=== PATIENT | female | born 1975 | race Caucasian/White ===

== ENCOUNTER 2022-10-19 11:56 | Inpatient (IN) | payer OTHER ==
[2022-10-19 12:10] VITALS: BMI 23.3
[2022-10-19] MEDS ORDERED: POLYETHYLENE GLYCOL (HEALTHYLAX) 3350 17 GM PACKET PO PRN (12:37)
[2022-10-19] MEDS ORDERED: MAGNESIUM HYDROX 2400MG/30ML ORAL SUSPENSION 30 ML CUP PO PRN (12:37)
[2022-10-19] MEDS ORDERED: guaiFENesin 600 MG TABLET.ER (FP) PO PRN (12:37)
[2022-10-19] MEDS ORDERED: LOPERAMIDE HCL 2 MG CAPSULE PO PRN (12:37)
[2022-10-19] MEDS ORDERED: NALOXONE HCL 0.4 MG/ML VIAL IM PRN (12:37)
[2022-10-19] MEDS ORDERED: IBUPROFEN 600 MG TABLET (FP) PO PRN (12:37)
[2022-10-19] MEDS ORDERED: MAG HYDROX/AL HYDROX/SIMETH 30 ML UNIT-DOSE CUP PO PRN (12:37)
[2022-10-19] MEDS ORDERED: ONDANSETRON *ODT* 4 MG TABLET SL PRN (12:37)
[2022-10-19] MEDS ORDERED: BENZOCAINE/MENTHOL (CHLORASEPTIC ) LOZENGE MM PRN (12:37)
[2022-10-19] MEDS ORDERED: MELATONIN 5 MG TABLETS PO PRN (12:37)
[2022-10-19] MEDS ORDERED: BISMUTH SUBSALICYLATE 524 MG/30 ML PO PRN (12:37)
[2022-10-19] MEDS ORDERED: BENZONATATE 200 MG CAPSULE PO PRN (12:37)
[2022-10-19] MEDS ORDERED: P-EPHED 60MG/TRIPROLIDI 2.5MG TABLET PO PRN (12:37)
[2022-10-19] MEDS ORDERED: NICOTINE POLACRILEX 2 MG GUM BUC PRN (12:37)
[2022-10-19] MEDS ORDERED: hydrOXYzine PAMOATE 25 MG CAPSULE (FP) PO PRN (12:37)
[2022-10-19] MEDS ORDERED: NALOXONE HCL (KLOXXADO) 8 MG SPRAY NS PRN (12:37)
[2022-10-19] MEDS: NICOTINE 14 MG/24 HOURS TOPICAL PATCH TD SCH (14:18)
[2022-10-19] MEDS ORDERED: methaDONE HCL 10 MG TABLET (FOR DETOX USE ONLY) PO ONE (15:01)
[2022-10-19] MEDS: SUVOREXANT 10 MG TABLET PO PRN (22:29)
[2022-10-19] MEDS: THIAMINE HCL 100 MG TABLET (FP) PO SCH (22:30)
[2022-10-19] MEDS: SULFAMETHOXAZOLE/TRIMETHOPRIM 800MG/160MG D.S. TABLET PO SCH (23:42)
[2022-10-19] MEDS: OXcarbazepine 300 MG TABLET (UD) PO SCH (23:47)
[2022-10-20] MEDS: METHOCARBAMOL 500 MG TABLET PO PRN ×3 (00:10→17:31)
[2022-10-20] MEDS: IBUPROFEN 400 MG TABLET (FP) PO PRN (05:34)
[2022-10-20] MEDS: cloNIDine HCL 0.1 MG TABLET PO PRN ×4 (05:34→22:35)
[2022-10-20] MEDS: OXcarbazepine 300 MG TABLET (UD) PO SCH ×3 (05:36→22:36)
[2022-10-20] MEDS: PRENATAL VITAMINS W/ FOLIC ACID TABLET (FP) PO SCH (10:11)
[2022-10-20] MEDS: SULFAMETHOXAZOLE/TRIMETHOPRIM 800MG/160MG D.S. TABLET PO SCH ×2 (10:11→22:36)
[2022-10-20] MEDS: ESCITALOPRAM OXALATE 20 MG TABLET PO SCH (10:11)
[2022-10-20] MEDS: NICOTINE 14 MG/24 HOURS TOPICAL PATCH TD SCH (10:14)
[2022-10-20] MEDS: BREXPIPRAZOLE 3 MG PO SCH (10:30)
[2022-10-20] MEDS: THIAMINE HCL 100 MG TABLET (FP) PO SCH (22:35)
[2022-10-20] MEDS: SUVOREXANT 10 MG TABLET PO PRN (22:35)
[2022-10-21] MEDS: METHOCARBAMOL 500 MG TABLET PO PRN ×2 (02:14→13:54)
[2022-10-21] MEDS: cloNIDine HCL 0.1 MG TABLET PO PRN ×5 (02:14→19:10)
[2022-10-21] MEDS: DICYCLOMINE HCL 10 MG CAPSULE PO PRN ×2 (02:14→17:46)
[2022-10-21] MEDS: ACETAMINOPHEN 325 MG TABLET (FP) PO PRN (02:15)
[2022-10-21] MEDS ORDERED: hydrOXYzine PAMOATE 50 MG CAPSULE (FP) PO ONE (04:28)
[2022-10-21] MEDS ORDERED: ASPIRIN 81 MG CHEWABLE TABLETS PO ONE (04:30)
[2022-10-21] MEDS: IBUPROFEN 400 MG TABLET (FP) PO PRN (06:14)
[2022-10-21] MEDS: OXcarbazepine 300 MG TABLET (UD) PO SCH ×3 (06:19→22:07)
[2022-10-21] MEDS: NICOTINE 14 MG/24 HOURS TOPICAL PATCH TD SCH (09:05)
[2022-10-21] MEDS: PRENATAL VITAMINS W/ FOLIC ACID TABLET (FP) PO SCH (09:05)
[2022-10-21] MEDS: SULFAMETHOXAZOLE/TRIMETHOPRIM 800MG/160MG D.S. TABLET PO SCH ×2 (09:05→22:06)
[2022-10-21] MEDS: ESCITALOPRAM OXALATE 20 MG TABLET PO SCH (09:05)
[2022-10-21] MEDS: BREXPIPRAZOLE 3 MG PO SCH (09:08)
[2022-10-21] MEDS ORDERED: ASPIRIN 81 MG CHEWABLE TABLETS PO SCH (10:00)
[2022-10-21] MEDS ORDERED: methaDONE HCL 10 MG TABLET (FOR DETOX USE ONLY) PO ONE (10:00)
[2022-10-21] MEDS: THIAMINE HCL 100 MG TABLET (FP) PO SCH (22:06)
[2022-10-22] MEDS: SUVOREXANT 10 MG TABLET PO PRN (00:13)
[2022-10-22] MEDS: METHOCARBAMOL 500 MG TABLET PO PRN ×2 (00:13→07:26)
[2022-10-22] MEDS: IBUPROFEN 400 MG TABLET (FP) PO PRN (02:40)
[2022-10-22] MEDS: DICYCLOMINE HCL 10 MG CAPSULE PO PRN (02:41)
[2022-10-22] MEDS: OXcarbazepine 300 MG TABLET (UD) PO SCH (05:37)
[2022-10-22] MEDS: ACETAMINOPHEN 325 MG TABLET (FP) PO PRN (05:39)
[2022-10-22] MEDS: ESCITALOPRAM OXALATE 20 MG TABLET PO SCH (09:28)
[2022-10-22] MEDS: NICOTINE 14 MG/24 HOURS TOPICAL PATCH TD SCH (09:28)
[2022-10-22] MEDS: PRENATAL VITAMINS W/ FOLIC ACID TABLET (FP) PO SCH (09:28)
[2022-10-22] MEDS: BREXPIPRAZOLE 3 MG PO SCH (09:29)
[2022-10-22] MEDS: SULFAMETHOXAZOLE/TRIMETHOPRIM 800MG/160MG D.S. TABLET PO SCH (09:30)
[2022-10-22 09:53] VITALS: RESP 16
[2022-10-22] MEDS ORDERED: ASPIRIN 81 MG CHEWABLE TABLETS PO ONE (10:15)
[2022-10-22 10:16] VITALS: BP 137/81; PULSE 77; TEMP 97.8
[2022-10-22] MEDS ORDERED: hydrOXYzine PAMOATE 50 MG CAPSULE (FP) PO ONE (11:00)
[2022-10-23] MEDS ORDERED: methaDONE HCL 10 MG TABLET (FOR DETOX USE ONLY) PO ONE (10:00)
== END 2022-10-22 11:26 | disposition left against medical advice (07) | DRG 894 ==
LOC: YASAS 11:56 → Y3N 13:38 → UNDOADMIN 13:38 → UNDODISIN 10-22 11:26
PROVIDERS: ADMIT Allergy & Immunology; ATTEND Surgery
PROC: HZ2ZZZZ Detoxification Services for Substance Abuse Treatment (ICD-10-PCS; principal; 2022-10-19)
DX: F11.23 Opioid dependence with withdrawal (principal); F14.20 Cocaine dependence, uncomplicated; F19.282 Other psychoactive substance dependence with psychoactive substance-induced sleep disorder; I69.851 Hemiplegia and hemiparesis following other cerebrovascular disease affecting right dominant side; F17.210 Nicotine dependence, cigarettes, uncomplicated; F19.24 Other psychoactive substance dependence with psychoactive substance-induced mood disorder; F41.9 Anxiety disorder, unspecified; F32.A Depression, unspecified; F43.10 Post-traumatic stress disorder, unspecified; R07.9 Chest pain, unspecified; Z62.810 Personal history of physical and sexual abuse in childhood; Z86.73 Personal history of transient ischemic attack (TIA), and cerebral infarction without residual deficits; Z86.19 Personal history of other infectious and parasitic diseases; Z86.69 Personal history of other diseases of the nervous system and sense organs
CPT/HCPCS: 81025; 87811; 93005; 93010; C9803-CS; U0003; U0005

== ENCOUNTER 2023-04-24 20:10 | Inpatient (IN) | payer OTHER ==
[2023-04-24 20:46] VITALS: BMI 21.9
[2023-04-24] MEDS ORDERED: methaDONE HCL 10 MG TABLET (FOR DETOX USE ONLY) PO ONE (22:18)
[2023-04-24] MEDS ORDERED: methaDONE HCL 10 MG TABLET (FOR DETOX USE ONLY) ONE (22:26)
[2023-04-24] MEDS ORDERED: BENZONATATE 200 MG CAPSULE PO PRN (22:37)
[2023-04-24] MEDS ORDERED: POLYETHYLENE GLYCOL (HEALTHYLAX) 3350 17 GM PACKET PO PRN (22:37)
[2023-04-24] MEDS ORDERED: guaiFENesin 600 MG TABLET.ER (FP) PO PRN (22:37)
[2023-04-24] MEDS ORDERED: NALOXONE HCL 0.4 MG/ML VIAL IM PRN (22:37)
[2023-04-24] MEDS ORDERED: LOPERAMIDE HCL 2 MG CAPSULE PO PRN (22:37)
[2023-04-24] MEDS ORDERED: NALOXONE HCL (KLOXXADO) 8 MG SPRAY NS PRN (22:37)
[2023-04-24] MEDS ORDERED: MAGNESIUM HYDROX 2400MG/30ML ORAL SUSPENSION 30 ML CUP PO PRN (22:37)
[2023-04-24] MEDS ORDERED: IBUPROFEN 400 MG TABLET (FP) PO PRN (22:37)
[2023-04-24] MEDS ORDERED: BISMUTH SUBSALICYLATE 524 MG/30 ML PO PRN (22:37)
[2023-04-24] MEDS ORDERED: NICOTINE POLACRILEX 4 MG GUM BUC PRN (22:37)
[2023-04-24] MEDS ORDERED: ACETAMINOPHEN 325 MG TABLET (FP) PO PRN (22:37)
[2023-04-24] MEDS ORDERED: BENZOCAINE/MENTHOL (CHLORASEPTIC ) LOZENGE MM PRN (22:37)
[2023-04-24] MEDS ORDERED: cloNIDine HCL 0.1 MG TABLET ONE (22:40)
[2023-04-24] MEDS: cloNIDine HCL 0.1 MG TABLET PO PRN (22:40)
[2023-04-25] MEDS: METHOCARBAMOL 500 MG TABLET PO PRN ×2 (01:23→19:38)
[2023-04-25] MEDS: IBUPROFEN 600 MG TABLET (FP) PO PRN ×2 (01:23→22:40)
[2023-04-25] MEDS: cloNIDine HCL 0.1 MG TABLET PO PRN ×4 (03:02→22:39)
[2023-04-25] MEDS: DICYCLOMINE HCL 10 MG CAPSULE PO PRN (03:02)
[2023-04-25] MEDS: PRENATAL VITAMINS W/ FOLIC ACID TABLET (FP) PO SCH (09:20)
[2023-04-25] MEDS: NICOTINE 21 MG/24 HOURS TOPICAL PATCH TD SCH (09:20)
[2023-04-25 10:30] LABS: HEMATOCRIT 43.3 % (32.4-45.2); HEMOGLOBIN 14.3 GM/dL (10.7-15.3); MCH 30.2 pg (25.7-33.7); MEAN CELL VOLUME 91.4 fl (80-96); MEAN PLT VOLUME 8.5 fl (7.5-11.1); PLATELET COUNT 276 10^3/uL (134-434); RBC 4.73 M/mm3 (3.60-5.2); RDW 14.2 % (11.6-15.6); WHITE BLOOD COUNT 10.5 K/mm3 (4.0-10.0)
[2023-04-25 10:35] LABS: CHLORIDE 104 mmol/L (98-107); POTASSIUM 4.1 mmol/L (3.5-5.1); SODIUM 136 mmol/L (136-145)
[2023-04-25 10:40] LABS: CALCIUM 8.9 mg/dL (8.5-10.1)
[2023-04-25 10:41] LABS: ALBUMIN 3.6 g/dl (3.4-5.0); ANION GAP 7 mmol/L (4-13); BLOOD UREA NITROGEN 14.6 mg/dL (7-18); CO2 25 mmol/L (21-32); GLUCOSE,RANDOM 115 mg/dL (74-106)
[2023-04-25 10:43] LABS: SGPT/ALT 45 U/L (13-61)
[2023-04-25 10:45] LABS: CREATININE 0.7 mg/dL (0.55-1.3); SGOT/AST 19 U/L (15-37)
[2023-04-25 10:46] LABS: BILIRUBIN,TOTAL 0.4 mg/dL (0.2-1); TOT PROT 7.4 g/dl (6.4-8.2)
[2023-04-25 10:47] LABS: ALK PHOS 117 U/L (45-117)
[2023-04-25] MEDS: amLODIPine BESYLATE 5 MG TABLET (FP) PO SCH (12:19)
[2023-04-25] MEDS: MELATONIN 5 MG TABLETS PO SCH (22:38)
[2023-04-25] MEDS: THIAMINE HCL 100 MG TABLET (FP) PO SCH (22:39)
[2023-04-26] MEDS: MAG HYDROX/AL HYDROX/SIMETH 30 ML UNIT-DOSE CUP PO PRN ×2 (01:35→07:41)
[2023-04-26] MEDS: DICYCLOMINE HCL 10 MG CAPSULE PO PRN ×2 (01:35→07:41)
[2023-04-26] MEDS: cloNIDine HCL 0.1 MG TABLET PO PRN ×3 (07:09→22:09)
[2023-04-26] MEDS: amLODIPine BESYLATE 5 MG TABLET (FP) PO SCH (09:02)
[2023-04-26] MEDS: PRENATAL VITAMINS W/ FOLIC ACID TABLET (FP) PO SCH (09:02)
[2023-04-26] MEDS: NICOTINE 21 MG/24 HOURS TOPICAL PATCH TD SCH (09:04)
[2023-04-26] MEDS ORDERED: methaDONE HCL 10 MG TABLET (FOR DETOX USE ONLY) PO ONE (10:00)
[2023-04-26] MEDS: METHOCARBAMOL 500 MG TABLET PO PRN ×2 (17:09→22:09)
[2023-04-26] MEDS: MELATONIN 5 MG TABLETS PO SCH (22:10)
[2023-04-26] MEDS: THIAMINE HCL 100 MG TABLET (FP) PO SCH (22:11)
[2023-04-27] MEDS: NICOTINE 21 MG/24 HOURS TOPICAL PATCH TD SCH (09:30)
[2023-04-27] MEDS: METHOCARBAMOL 500 MG TABLET PO PRN ×2 (09:30→15:51)
[2023-04-27] MEDS: PRENATAL VITAMINS W/ FOLIC ACID TABLET (FP) PO SCH (09:30)
[2023-04-27] MEDS: amLODIPine BESYLATE 5 MG TABLET (FP) PO SCH (09:31)
[2023-04-27] MEDS: IBUPROFEN 600 MG TABLET (FP) PO PRN ×2 (10:19→17:17)
[2023-04-27 10:30] LABS: BASO % 0.4 % (0-2.0); EOS % 0.4 % (0-4.5); HEMATOCRIT 42.4 % (32.4-45.2); HEMOGLOBIN 14.1 GM/dL (10.7-15.3); MCH 30.4 pg (25.7-33.7); MCHC 33.3 g/dl (32.0-36.0); MEAN CELL VOLUME 91.3 fl (80-96); MEAN PLT VOLUME 8.6 fl (7.5-11.1); MONO % 5.1 % (3.8-10.2); NEUT % 68.1 % (42.8-82.8); PLATELET COUNT 243 10^3/uL (134-434); RBC 4.64 M/mm3 (3.60-5.2); RDW 14.3 % (11.6-15.6); WHITE BLOOD COUNT 8.2 K/mm3 (4.0-10.0)
[2023-04-27] MEDS ORDERED: diazePAM 5 MG TABLET PO ONE ×2 (17:00→21:32)
[2023-04-27] MEDS: MELATONIN 5 MG TABLETS PO SCH (22:14)
[2023-04-27] MEDS: THIAMINE HCL 100 MG TABLET (FP) PO SCH (22:14)
[2023-04-27] MEDS ORDERED: ONDANSETRON *ODT* 4 MG TABLET SL PRN (23:31)
[2023-04-28] MEDS ORDERED: ONDANSETRON *ODT* 4 MG TABLET SL PRN (01:56)
[2023-04-28] MEDS ORDERED: TRIMETHOBENZAMIDE HCL 200MG/2ML INJ IM ONE (02:45)
[2023-04-28] MEDS ORDERED: diazePAM 5 MG TABLET PO ONE (03:00)
[2023-04-28] MEDS ORDERED: methaDONE HCL 10 MG TABLET (FOR DETOX USE ONLY) PO ONE (10:00)
[2023-04-28] MEDS: NICOTINE 21 MG/24 HOURS TOPICAL PATCH TD SCH (10:30)
[2023-04-28] MEDS: amLODIPine BESYLATE 5 MG TABLET (FP) PO SCH (10:30)
[2023-04-28] MEDS: PRENATAL VITAMINS W/ FOLIC ACID TABLET (FP) PO SCH (10:30)
[2023-04-28] MEDS ORDERED: cloNIDine HCL 0.1 MG TABLET PO ONE (16:03)
[2023-04-28] MEDS: METHOCARBAMOL 500 MG TABLET PO PRN (20:20)
[2023-04-28] MEDS: MELATONIN 5 MG TABLETS PO SCH (21:07)
[2023-04-28] MEDS: CEPHALEXIN MONOHYDRATE 500 MG CAPSULE (UD) PO SCH (21:07)
[2023-04-28] MEDS: THIAMINE HCL 100 MG TABLET (FP) PO SCH (21:07)
[2023-04-29 08:56] VITALS: BP 163/98; PULSE 97; RESP 19; TEMP 97.8
[2023-04-29] MEDS: amLODIPine BESYLATE 5 MG TABLET (FP) PO SCH (09:13)
[2023-04-29] MEDS: PRENATAL VITAMINS W/ FOLIC ACID TABLET (FP) PO SCH (09:13)
[2023-04-29] MEDS: CEPHALEXIN MONOHYDRATE 500 MG CAPSULE (UD) PO SCH (09:13)
[2023-04-29] MEDS: NICOTINE 21 MG/24 HOURS TOPICAL PATCH TD SCH (09:14)
== END 2023-04-29 09:53 | disposition home or self-care (01) | DRG 897 ==
LOC: YASAS 20:10 → Y6N 22:50
PROVIDERS: ADMIT Allergy & Immunology; ATTEND Psychiatry & Neurology Pain Medicine
PROC: HZ2ZZZZ Detoxification Services for Substance Abuse Treatment (ICD-10-PCS; principal; 2023-04-24)
DX: F11.23 Opioid dependence with withdrawal (principal); F14.20 Cocaine dependence, uncomplicated; L03.119 Cellulitis of unspecified part of limb; I69.851 Hemiplegia and hemiparesis following other cerebrovascular disease affecting right dominant side; F17.210 Nicotine dependence, cigarettes, uncomplicated; F19.24 Other psychoactive substance dependence with psychoactive substance-induced mood disorder; G40.909 Epilepsy, unspecified, not intractable, without status epilepticus; I10 Essential (primary) hypertension; R11.0 Nausea; Z86.19 Personal history of other infectious and parasitic diseases
CPT/HCPCS: 36415; 80053; 80307; 81025; 85025; 85027; 86780; 87635; 87811; Q0162

== ENCOUNTER 2023-04-28 06:54 | Emergency (ER) | payer OTHER ==
[2023-04-28 07:28] VITALS: RESP 20; BMI 21.9
[2023-04-28] MEDS ORDERED: SODIUM CHLORIDE 0.9% 500 ML INFUS.BAG IV ONE (07:52)
[2023-04-28] MEDS ORDERED: METOCLOPRAMIDE HCL INJECTION 10 MG/2 ML VIAL IVPB ONE (07:52)
[2023-04-28] MEDS ORDERED: ACETAMINOPHEN 1000 MG/100 ML BAG IVPB ONE (08:01)
[2023-04-28] MEDS ORDERED: METOCLOPRAMIDE HCL INJECTION 10 MG/2 ML VIAL ONE (08:01)
[2023-04-28] MEDS ORDERED: ACETAMINOPHEN INJECTION 100 ML IVPB ONE (08:56)
[2023-04-28 09:24] LABS: PROTHROMBIN TIME (PATIENT) 11.6 SEC (9.7-13.0)
[2023-04-28 09:26] LABS: BASO % 0.4 % (0-2.0); HEMATOCRIT 44.1 % (32.4-45.2); HEMOGLOBIN 14.6 GM/dL (10.7-15.3); LYMPH % 15.7 % (8-40); MCH 30.1 pg (25.7-33.7); MCHC 33.1 g/dl (32.0-36.0); MEAN CELL VOLUME 90.9 fl (80-96); MEAN PLT VOLUME 8.5 fl (7.5-11.1); MONO % 3.9 % (3.8-10.2); PLATELET COUNT 282 10^3/uL (134-434); RBC 4.85 M/mm3 (3.60-5.2); RDW 13.9 % (11.6-15.6); WHITE BLOOD COUNT 11.3 K/mm3 (4.0-10.0)
[2023-04-28 09:27] LABS: ACTIVATED PTT 28.1 SECONDS (25.2-36.5)
[2023-04-28 09:33] LABS: CHLORIDE 94 mmol/L (98-107); SODIUM 130 mmol/L (136-145)
[2023-04-28 09:36] LABS: BLOOD UREA NITROGEN 11.5 mg/dL (7-18); CALCIUM 9.5 mg/dL (8.5-10.1); CO2 27 mmol/L (21-32); GLUCOSE,RANDOM 119 mg/dL (74-106); LIPASE 28 U/L (73-393); MAGNESIUM 2.2 mg/dL (1.8-2.4)
[2023-04-28 09:39] LABS: CREATININE 0.6 mg/dL (0.55-1.3); SGOT/AST 65 U/L (15-37); SGPT/ALT 42 U/L (13-61)
[2023-04-28 09:40] LABS: TOT PROT 8.7 g/dl (6.4-8.2)
[2023-04-28 09:41] LABS: BILIRUBIN,TOTAL 0.4 mg/dL (0.2-1)
[2023-04-28 09:42] LABS: ALK PHOS 122 U/L (45-117)
[2023-04-28 09:45] LABS: ANION GAP 9 mmol/L (4-13); POTASSIUM 6.1 mmol/L (3.5-5.1)
[2023-04-28] MEDS ORDERED: methaDONE HCL 10 MG TABLET (FOR DETOX USE ONLY) PO SCH (10:45)
[2023-04-28] MEDS ORDERED: methaDONE HCL 10 MG TABLET (FOR DETOX USE ONLY) PO ONE (11:22)
[2023-04-28] MEDS ORDERED: methaDONE HCL 10 MG TABLET ONE (11:32)
[2023-04-28] MEDS ORDERED: methaDONE HCL 10 MG TABLET PO ONE (11:45)
[2023-04-28] MEDS ORDERED: MAG HYDROX/AL HYDROX/SIMETH 30 ML UNIT-DOSE CUP PO ONE (12:05)
[2023-04-28 12:17] LABS: POTASSIUM 4.2 mmol/L (3.5-5.1)
[2023-04-28 12:18] LABS: CALCIUM 8.9 mg/dL (8.5-10.1)
[2023-04-28 12:19] LABS: BLOOD UREA NITROGEN 9.8 mg/dL (7-18)
[2023-04-28] MEDS ORDERED: MAG HYDROX/AL HYDROX/SIMETH 30 ML UNIT-DOSE CUP ONE (12:21)
[2023-04-28 12:23] LABS: CREATININE 0.7 mg/dL (0.55-1.3)
[2023-04-28] MEDS ORDERED: amLODIPine BESYLATE 5 MG TABLET (FP) PO ONE (14:13)
[2023-04-28] MEDS ORDERED: amLODIPine BESYLATE 5 MG TABLET (FP) ONE (14:15)
[2023-04-28 14:18] VITALS: BP 164/96; PULSE 76; TEMP 98.6
== END 2023-04-28 14:45 | disposition home or self-care (01) ==
LOC: JER 06:54
PROC: 3E033GC Introduction of Other Therapeutic Substance into Peripheral Vein, Percutaneous Approach (ICD-10-PCS; principal; 2023-04-28)
PROC: 3E033NZ Introduction of Analgesics, Hypnotics, Sedatives into Peripheral Vein, Percutaneous Approach (ICD-10-PCS; 2023-04-28)
DX: R11.2 Nausea with vomiting, unspecified (principal); R10.84 Generalized abdominal pain; R51.9 Headache, unspecified; R10.13 Epigastric pain; R10.11 Right upper quadrant pain
CPT/HCPCS: 36415; 71046-TC-FY; 76705-TC; 80048; 80053; 83690; 83735; 84484; 85025; 85610; 85730; 93005; 93010; 99285-25